=== PATIENT | female | born 1940 | race Caucasian/White ===

== ENCOUNTER 2018-10-25 17:15 | Emergency (ER) | payer BC, OTHER ==
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
[2018-10-25] MEDS ORDERED: ACETAMINOPHEN 325 MG TABLET (FP) PO ONE (18:02)
[2018-10-25] MEDS ORDERED: ACETAMINOPHEN 325 MG TABLET (FP) ONE (18:46)
[2018-10-25 19:19] VITALS: BP 128/85; PULSE 85; TEMP 98.6; BMI 32.1
[2018-10-25] MEDS ORDERED: BACITRACIN 0.9 GM PACKET ONE (20:22)
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
== END 2018-10-25 20:28 | disposition home or self-care (01) ==
LOC: JER 17:15
DX: Z04.1 Encounter for examination and observation following transport accident (principal); V03.10XA Pedestrian on foot injured in collision with car, pick-up truck or van in traffic accident, initial encounter; Y93.89 Activity, other specified; Y92.481 Parking lot as the place of occurrence of the external cause; J45.909 Unspecified asthma, uncomplicated; I25.2 Old myocardial infarction
CPT/HCPCS: 71045-TC-FY; 73070-TC-LT-FY; 73090-TC-LT-FY; 99282-25

== ENCOUNTER 2021-04-28 17:17 | Emergency (ER) | payer OTHER, BC ==
[2021-04-28 17:21] VITALS: BP 156/85; PULSE 94; TEMP 98; BMI 28.3
[2021-04-28] MEDS ORDERED: CEPHALEXIN MONOHYDRATE 500 MG CAPSULE (UD) PO ONE (19:10)
[2021-04-28] MEDS ORDERED: CEPHALEXIN MONOHYDRATE 500 MG CAPSULE (UD) ONE (19:32)
== END 2021-04-28 20:16 | disposition home or self-care (01) ==
LOC: JER 17:17
DX: L03.114 Cellulitis of left upper limb (principal)
CPT/HCPCS: 99283-25